=== PATIENT | female | born 2000 | race Caucasian/White ===

== ENCOUNTER → 2024-06-25 08:03 | Outpatient (REF) | payer OTHER, SELFPAY | LOC: PNTC 08:03 | PROVIDERS: ATTENDING PHYSICIAN Obstetrics & Gynecology | DX: O28.3 Abnormal ultrasonic finding on antenatal screening of mother (principal) | CPT/HCPCS: 76815 ==

== ENCOUNTER → 2024-07-27 08:53 | Outpatient (REF) | payer OTHER, SELFPAY | LOC: PNTC 08:53 | PROVIDERS: ATTENDING PHYSICIAN Student in an Organized Health Care Education/Training Program | DX: Z34.90 Encounter for supervision of normal pregnancy, unspecified, unspecified trimester (principal) | CPT/HCPCS: 36415; 86850; 86900; 86901; 96372; J2790 ==

== ENCOUNTER 2024-10-21 15:01 | Inpatient (IN) | payer OTHER, SELFPAY ==
[2024-10-21 15:24] VITALS: BP 112/56; BMI 23.6
[2024-10-21 16:08] LABS: Hematocrit 35.5 % (37.0-47.0); Hemoglobin 12.0 g/dL (12.0-16.0); Mean Corp Hgb Conc. 33.8 g/dL (33.0-37.0); Mean Corpuscular Volume 86.2 fL (81.0-99.0); Nucleated Red Blood Cells % 0 %; Platelet Count 200 10^3/uL (130-400); Red Cell Dist. Width 12.9 % (11.5-14.5)
[2024-10-21] MEDS: FENTANYL/BUPIVACAINE 100 EPIDURAL (18:05)
[2024-10-21] MEDS: SUBLIMAZE 100 MCG EPIDURAL (18:05)
[2024-10-21] MEDS: LR 1000 IV (18:24)
[2024-10-21] MEDS: PITOCIN 30 UNITS/NSS 500 ML IV (21:33)
[2024-10-22] MEDS: TYLENOL 650 MG PO (00:05)
[2024-10-22] MEDS: MOTRIN 600 MG PO ×3 (03:04→16:36)
[2024-10-22] MEDS: COLACE 100 MG PO ×2 (07:26→19:37)
[2024-10-22] MEDS: RHOGAM 300 MCG IM (09:22)
[2024-10-22 14:28] LABS: Syphilis/T. pallidum Ab Reflex Negative (Negative)
[2024-10-23] MEDS: MOTRIN 600 MG PO (04:29)
[2024-10-23] MEDS: COLACE 100 MG PO (07:56)
== END 2024-10-23 11:49 | disposition home or self-care (01) | DRG 807 ==
LOC: LDRP 15:01
PROVIDERS: ADMITTING PHYSICIAN Student in an Organized Health Care Education/Training Program; ATTENDING PHYSICIAN Advanced Practice Midwife
PROC: 0KQM0ZZ Repair Perineum Muscle, Open Approach (ICD-10-PCS; 2024-10-21)
PROC: 10E0XZZ Delivery of Products of Conception, External Approach (ICD-10-PCS; 2024-10-21)
PROC: 10907ZC Drainage of Amniotic Fluid, Therapeutic from Products of Conception, Via Natural or Artificial Opening (ICD-10-PCS; 2024-10-21)
PROC: 3E0334Z Introduction of Serum, Toxoid and Vaccine into Peripheral Vein, Percutaneous Approach (ICD-10-PCS; 2024-10-22)
DX: O76 Abnormality in fetal heart rate and rhythm complicating labor and delivery (principal); Z37.0 Single live birth; O48.0 Post-term pregnancy; Z3A.41 41 weeks gestation of pregnancy; O69.81X0 Labor and delivery complicated by cord around neck, without compression, not applicable or unspecified; O70.1 Second degree perineal laceration during delivery; O26.893 Other specified pregnancy related conditions, third trimester; Z67.11 Type A blood, Rh negative
CPT/HCPCS: 59025; 76815; 85025; 85461; 86780; 86850; 86870; 86900; 86901; J2790